=== PATIENT | male | born 1975 | race Caucasian/White ===

== ENCOUNTER 2019-12-26 02:19 | Observation (INO) | payer OTHER ==
[~2019-12-26] VITALS: Ht 172.7 cm; Wt 93.0 kg
--- NOTE | ~2019-12-26 | CON ---
[address] [address] CONSULTATION Name: JACOB HENDERSON Room: [address] Donavon Chiang#: [id number] Admission: 12/26/19 Attend Phys: Roberto Gomez Discharge: Date of : 77 Report #: [id number] THIS REPORT FOR: //name// cc: OLIVA Marx family physician/PCP OLIVA - Araseli family physician/PCP ~ THIS REPORT FOR: //name// CC: [facility] physician/PCP Nicholas Waller DATE OF SERVICE: 12/26/2019 REASON FOR CONSULT: Epigastric pain radiating to the shoulder and the back. HISTORY OF PRESENT ILLNESS: This is a 44-year-old male with no significant past medical history who has mild history of asthma for which he takes p.r.n. inhalers. He reports that month ago, he had severe epigastric pain with nausea, which lasted an hour, then yesterday, he started having severe pain in the epigastric region radiating to the sides and to shoulder and neck. The patient reports this lasted for 6-7 hours and he tried to induce vomiting to see if that improves his pain. The patient reports since he did not get any relief of his pain, he decided to come to hospital. Since hospitalization, he has had liver enzymes, labs including CBC. He also had an ultrasound, which showed evidence of pericholecystic fluid with thickening of the gallbladder. His CBD also was dilated to 6.3 mm. Note that his LFTs are normal and there is no obstructive pattern based on LFTs. PAST MEDICAL HISTORY: Significant for history of asthma. ALLERGIES: SIGNIFICANT TO PENICILLIN AND PROMETHAZINE. MEDICATIONS: Please refer to MAR. SOCIAL HISTORY: The patient lives at home. Denies tobacco or alcohol use. FAMILY HISTORY: Significant to history of pancreatic cancer in the grandfather and lung cancer in father and uncle. Note that both father and uncle were smoker. PHYSICAL EXAMINATION: VITAL SIGNS: Reveals blood pressure of 120/77, respirations 18, pulse 55, temperature 97.3. LUNGS: Clear. CARDIOVASCULAR: Regular. ABDOMEN: Large, soft, nontender, nondistended. Bowel sounds are positive. NEUROLOGIC: The patient is alert and oriented x 3. [place] [address] CONSULTATION Name: JACOB HENDERSON Room: [address] Андрей#: [id number] Admission: 12/26/19 Attend Phys: Roberto Gomez Discharge: Date of : 77 Report #: [id number] neurologic deficit. LABORATORY DATA: Reveal sodium of 140, potassium 4.2, BUN is 11, creatinine is 1.0, glucose is 141, AST 17, ALT 45, alkaline phosphatase 71. WBC is 12.5 with hemoglobin of 15.3 and platelets of 269. IMAGING: As discussed above. ASSESSMENT AND PLAN: The patient with acute abdominal pain, which is epigastric in origin, radiating to shoulders and the sides. Ultrasound is suggestive of cholecystitis as the patient has pericholecystic fluid and thickening of gallbladder with gallstones. The common bile duct is mildly dilated to 6.3, but there is no obstructive pattern of LFTs. We will recommend lap carlyle with IOC. By: [id number] Adame MD /nt
[~2019-12-26 02:19] MED LIST: ADVAIR; CORTISPORIN EY7.5 ML OP; NORCO 5-325 TA1 EACH PO; VENTOLIN
[2019-12-26 02:44] VITALS: BP 144/87
[2019-12-26 03:02] LABS: ABSOLUTE BASOPHILS 0.1 thou/uL (0.0-0.2); ABSOLUTE EOSINOPHILS 0.2 thou/uL (0.0-0.7); ABSOLUTE LYMPHOCYTES 1.5 thou/uL (0.8-5.3); ABSOLUTE MONOCYTES 0.5 thou/uL (0.0-1.2); ABSOLUTE NEUTROPHILS 10.3 thou/uL (1.6-8.1); BASOPHILS 0.5 %; EOSINOPHILS 1.3 %; HEMATOCRIT 44.9 % (42.0-52.0); HEMOGLOBIN 15.3 gm/dL (14.0-18.0); LYMPHOCYTES 12.3 %; MCH 28.7 pg (26.0-34.0); MCV 84.4 fL (80.0-100.0); MONOCYTES 3.9 %; MPV 8.5 fl. (7.2-11.1); NUCLEATED RBCS 0 /100WBC; PLATELET COUNT* 269 thou/uL (150-400); RBC 5.32 mil/uL (4.50-6.00); RDW-CV 13.6 % (10.5-14.5); WBC 12.5 thou/uL (4.0-11.0)
[2019-12-26 03:14] LABS: CALCIUM 9.3 mg/dL (8.5-10.1); POTASSIUM 4.2 mmol/L (3.5-5.1)
[2019-12-26 03:18] LABS: ALBUMIN 4.1 g/dL (3.4-5.0); TOTAL BILIRUBIN 0.3 mg/dL (<0.1-1.0); TOTAL PROTEIN 7.2 g/dL (6.4-8.2)
[2019-12-26 05:25] VITALS: BP 144/77
[2019-12-26 06:00] VITALS: BP 123/66
--- NOTE | 2019-12-26 07:40 | NUR ---
PT ADMITTED TO 311 AT ABOUT 0600. PT ALERT AND ORIENTED. VSS ON RA. ABD DISCOMFORT OF 1 NOTED. PT UP AD SYLVESTER. PT HAS HIS INHALER IN THE ROOM. ADMISSION HX AND ASSESSMENT DONE. RH IV WITH NS @ 100. PT ORIENTED TO ROOM AND CALL LIGHT. WILL CONTINUE TO MONITOR.
[2019-12-26 07:50] VITALS: BP 120/77
[2019-12-26 15:15] VITALS: BP 126/62
--- NOTE | 2019-12-26 17:45 | NUR ---
PATIENT HAS BEEN SITTING UP IN THE CHAIR ALOT TODAY AND TAKING NAPS IN THE BED. HE IS ALERT AND ORIENTED X 4 AND GETS UP TO THE BATHROOM INDEPENDENTLY. HIS HAS BEEN IN TO VISIT MOST OF THE DAY AND BROUGHT HIM FOOD FROM HOME. HE HAS HAD NO COMPLAINTS OF PAIN OR NAUSEA TODAY. HE IS GOING TO BE NPO FOR A LAP KAITA TOMORROW. HE USES HIS CALL LIGHT TO MAKE HIS NEEDS KNOWN. NO DISTRESS NOTED TODAY.
[2019-12-26 19:40] VITALS: BP 123/72
[2019-12-27 04:45] LABS: HEMATOCRIT 44.7 % (42.0-52.0); HEMOGLOBIN 15.1 gm/dL (14.0-18.0); MCH 28.7 pg (26.0-34.0); MCHC 33.7 g/dL (28.0-37.0); MCV 85.3 fL (80.0-100.0); MPV 9.1 fl. (7.2-11.1); RBC 5.24 mil/uL (4.50-6.00); RDW-CV 13.7 % (10.5-14.5); WBC 7.9 thou/uL (4.0-11.0)
[2019-12-27 05:08] LABS: ALBUMIN 3.4 g/dL (3.4-5.0); CALCIUM 8.6 mg/dL (8.5-10.1); CREATININE 0.9 mg/dL (0.6-1.3); MAGNESIUM 2.2 mg/dL (1.8-2.4); PHOSPHORUS* 3.9 mg/dL (2.5-4.9); TOTAL BILIRUBIN 0.3 mg/dL (<0.1-1.0); TOTAL PROTEIN 6.5 g/dL (6.4-8.2)
--- NOTE | 2019-12-27 05:11 | NUR ---
PT ALERT AND ORIENTED. UP AD SYLVESTER. VSS ON RA. MEDS GIVEN PER EMAR. PT DENIES N/V THIS SHIFT. CONSENT FOR SURGERY SIGNED. NPO SINCE MIDNIGHT. AWAITING SURGERY TODAY. WILL CONTINUE MONITOR.
[2019-12-27 08:13] VITALS: BP 122/86
[2019-12-27] MEDS ORDERED: OXYCODONE HCL 55 MG PO (09:17)
[2019-12-27] MEDS ORDERED: LEVAQUIN 500 M500 M2 PO (09:17)
--- NOTE | 2019-12-27 09:37 | NUR ---
PATIENT DOWN TO PRE-OP VIA BED ACCOMPANIED BY NURSING STAFF. NO DISTRESS OR PAIN AT TIME OF TRANSFER.
--- NOTE | 2019-12-27 12:27 | NUR ---
PATIENT RETURNED FROM SURGERY. DENIES NEED FOR PAIN MEDICATION AT THIS TIME. HE WANTS TO SLEEP A LITTLE WHILE BEFORE HE GOES HOME. IS AT THE BEDSIDE. NO DISTRESS NOTED. HE HAS 4 LAP SITES WITH DERMABOND. NO BLEEDING OR DRAINAGE NOTED. HE STATES THAT HE IS JUST A "LITTLE SORE."
[2019-12-27 12:35] VITALS: BP 122/86
[2019-12-27 12:42] VITALS: BP 122/86
[2019-12-27 15:44] VITALS: BP 122/86
--- NOTE | 2019-12-27 15:45 | NUR ---
I EXPLAINED ALL DISCHARGE INSTRUCTIONS TO PATIENT AND ANSWERED ALL QUESTIONS. I DID MEDICATE PATIENT PRIOR TO DISCHARGE. I WENT OVER ALL MEDICATIONS AND GAVE PATIENT BOTH OF HIS PRESCRIPTIONS AND HANDOUTS OVER THEM. HE WAS TAKEN OUT TO [facility] VIA WHEELCHAIR ACCOMPANIED BY MYSELF AND HIS . ALL PERSONAL BELONGINGS WERE BAGGED AND TAKEN OUT WITH HIM. NO DISTRESS NOTED. HE DID EAT, DRINK AND VOID PRIOR TO DISHCARGE. NO NAUSEA REPORTED.
--- NOTE | 2019-12-30 17:07 | PATH ---
[address] [address] PATHOLOGY RPT PROCEDURE Name: HIRA HENDERSON Room: [address] Donavon Chiang#: [id number] Admission: 12/26/19 Date of : 77 Discharge: 12/27/19 Report #: [id number] Path Case #: [id number] [facility] Accession Number: [id number] . 01 Material submitted: . gallbladder - GALLBLADDER . 01 Clinical history: . Cholecystitis . 02 Diagnosis: Gallbladder: - Chronic and acute cholecystitis with cholesterolosis. (LICHA:jonathan; 12/30/2019) [facility] [place] 12/30/2019 1232 Local . 02 Electronically signed: . Shun Berry MD, Pathologist NPI- [id number] . 01 Gross description: . The specimen is received in formalin, labeled "Hira Rojelio, gallbladder". Received is an intact gallbladder measuring 8.6 x 3.2 x 2.8 cm in greatest dimensions displaying a pink-rodriguez serosal surface. Opening the specimen reveals a velvety, yellow-dickson mucosa with a gallbladder wall thickness of 0.1 cm. The lumen of the gallbladder is filled with bile-stained, thick mucoid material. Calculi are not present, and no masses or lesions are noted grossly. Diamond [employer]ker sections, to include the proximal margin, are submitted in cassette A1. (CAA; 12/29/2019) [facility] 12/29/2019 1245 Local . 02 Pathologist provided ICD-10: K81.2, K82.4 . 02 CPT . 790167 Specimen Comment: A courtesy copy of this report has been sent to [phone] Specimen Comment: Report sent to Performed at: 01 [facility] [address] [facility] [address], [place] [id number] MD Vinicius Mendez MD Phone: [phone] Performed at: 02 [facility] [address], [place], [place] [id number] MD Shun Berry MD Phone: [phone]
--- NOTE | 2020-01-03 11:42 | OP ---
[address] [address] OPERATIVE REPORT Name: JACOB HENDERSON Room: [address] Donavon Chiang#: [id number] Admission: 12/26/19 Attend Phys: Roberto Gomez Discharge: 12/27/19 Date of : 77 Report #: [id number] THIS REPORT FOR: //name// cc: OLIVA Briggs No family physician/PCP OLIVA - No family physician/PCP ~ THIS REPORT FOR: //name// CC: OLIVA physician/PCP Nicholas Waller DICTATED BY: Kunal Veronica DO DATE OF SERVICE: 12/27/2019 PREOPERATIVE DIAGNOSIS: Cholecystitis, cholelithiasis. POSTOPERATIVE DIAGNOSIS: Cholecystitis, cholelithiasis. SURGEON: Dimple Houston DO PLASTER CASTER: Kunal Veronica, PGY4 OPERATION PERFORMED: Laparoscopic cholecystectomy. ANESTHESIA: General and local. ESTIMATED BLOOD LOSS: 2 mL. SPECIMEN: Gallbladder. COMPLICATIONS: None. INDICATIONS: The patient is a 44-year-old male who presented to the Emergency Department with complaints of epigastric pain that began after a meal. On workup, he was found to have a CT with a distended gallbladder and gallstones and some mild pericholecystic fluid. Due to his symptoms and imaging, he was informed of the risks and benefits of laparoscopic cholecystectomy with risks including but not limited to bleeding, infection, common bile duct injury, bowel injury, need for reoperation, hernia, chronic diarrhea. He understood these risks and decided to proceed with surgery. TECHNIQUE: After informed consent was obtained, the patient was brought to the operating room and placed in supine position. SCDs were on and running. Preoperative antibiotics were given. General anesthesia was administered with an ET tube. The patient was prepped and draped in the usual sterile fashion. A surgical pause was held to confirm proper patient and [place] [address] OPERATIVE REPORT Name: JACOB HENDERSON Room: [address] Donavon Chiang#: [id number] Admission: 12/26/19 Attend Phys: Roberto Gomez Discharge: 12/27/19 Date of : 77 Report #: [id number] skin was infiltrated with local anesthetic, grasped with two Adson's and elevated. An 11 blade was used to incise the skin. Dissection was carried down bluntly until the fascia was identified, which was elevated with 2 Kochers. Fascia was incised using cautery. Peritoneum was bluntly entered using a Tory. A finger was introduced into the abdomen to confirm intraperitoneal location. A stay suture with 0 Vicryl was placed on either side of the fascia. Abdoulaye trocar was introduced and secured. The abdomen was insufflated. Camera was introduced. Brief exploration of the right upper quadrant was undertaken. The gallbladder was readily visible and somewhat inflamed. A 5 mm port was placed in the epigastrium under direct visualization and two 5 mm ports in the right upper quadrant were placed under direct visualization. Gallbladder was elevated. There were some omental fatty adhesions to the Alden's pouch, which were taken down using cautery. Alden's pouch was then grasped and retracted. A peritoneal flap was created using cautery and this plane was developed laterally and then medially exposing the hepatocystic triangle. Blunt dissection using a [place] dissector was used to dissect out the cystic duct and cystic artery. Once a critical view of safety was obtained with 2 and only 2 structures entering the gallbladder, the cystic duct and cystic artery, the cystic duct was doubly clipped and the cystic artery was doubly clipped and both were cut using laparoscopic scissors. The gallbladder was then elevated and dissected free from the liver bed. This plane was somewhat edematous from the acute inflammation. The cystic duct clipped on the gallbladder side, became dislodged. Two additional clips were placed to minimize spillage. Once the gallbladder was completely excised from the liver bed, it was placed within an EndoCatch bag and placed aside. The liver bed was inspected. Cautery was used for hemostasis. The clips were inspected. There was no biliary leakage or bleeding. The right upper quadrant was irrigated and suctioned. The patient was leveled out. Right upper quadrant was suctioned. The abdomen was desufflated. All ports were removed under direct visualization. Gallbladder was removed through the umbilical incision. Previous stay sutures were elevated and replaced with Kochers. A single of [id number] was used to close the fascia. Wounds were closed with 4-0 Monocryl. They were then cleansed and dressed with Dermabond. All counts were correct. The patient was emerged from anesthesia and transferred to PACU in stable condition. <ELECTRONICALLY SIGNED> By: Dimple Houston DO 01/03/20 1142 1123 1203Ccorey Houston DO /nt
== END 2019-12-27 15:00 | disposition home or self-care (01) ==
LOC: M.ERS 02:19 → M.TBA-ER 04:48 → M.3W 05:44
PROVIDERS: Emergency Medicine; ADMIT Internal Medicine; ATTEND Internal Medicine
DX: K80.10 Calculus of gallbladder with chronic cholecystitis without obstruction (principal); J45.909 Unspecified asthma, uncomplicated; R11.2 Nausea with vomiting, unspecified